=== PATIENT | male | born 1975 | race American Indian/Alaskan Native ===

== ENCOUNTER 2017-08-06 02:47 | Inpatient (IN) | payer MEDICARE, OTHER ==
[2017-08-06] MEDS ORDERED: NACL 0.9% 1000 ML 1,000 ML IV ONE ×2 (03:20→04:10)
[2017-08-06] MEDS ORDERED: ZOFRAN IV ONE (03:57)
[2017-08-06] MEDS ORDERED: PROTONIX IV ONE (03:59)
[2017-08-06] MEDS ORDERED: ZOFRAN ONE ×2 (03:59→15:02)
[2017-08-06] MEDS ORDERED: PROTONIX 80 MG in NACL 0.9% 100 ML IV SCH (04:00)
--- NOTE | 2017-08-06 04:07 | Emergency Department Report ---
ED GI Bleed HPI - General Chief complaint: GI Bleed Stated complaint: VOMITING BLOOD Time Seen by Provider: 08/06/17 03:31 Source: patient, EMS Mode of arrival: Stretcher Limitations: No Limitations - History of Present Illness Initial comments: History of ulcerative colitis. Has seen a GI doctor, dr weiss at [facility], but lost to follow-up, his friends state he does drink and smoke, he' s been having brb and clots per upper gi and nl stool per pt, he is vomiting blood times one day MD complaint: blood streaked emesis, gross hematemesis -: This evening Radiation: none - Related Data Allergies Allergy/AdvReac Type Severity Reaction Status Date / Time Penicillins Allergy Unknown Verified 08/06/17 03:20 ED Review of Systems ROS: Stated complaint: VOMITING BLOOD Other details as noted in HPI Comment: All other systems reviewed and negative Constitutional: diaphoresis, malaise. denies: fever, weakness ENT: denies: ear pain, throat pain Respiratory: denies: see HPI, cough, orthopnea, shortness of breath, SOB with exertion, SOB at rest, stridor, wheezing Cardiovascular: denies: chest pain, palpitations, dyspnea on exertion, orthopnea , edema, syncope, paroxysmal nocturnal dyspnea Gastrointestinal: nausea, vomiting, hematemesis. denies: abdominal pain Skin: rash, lesions Neurological: denies: headache, weakness, numbness, paresthesias, confusion, abnormal gait, vertigo ED Past Medical Hx - Past Medical History Additional medical history: A fib. ulcerative colitis - Surgical History Additional Surgical History: esophagus - Social History Smoking Status: Current Some Day Smoker ED Physical Exam - General Limitations: No Limitations General appearance: alert, anxious - Head Head exam: Present: atraumatic, normocephalic - Eye Eye exam: Present: other (pale conjunctiva) - ENT ENT exam: Present: normal exam, normal orophraynx, mucous membranes moist - Neck Neck exam: Present: normal inspection. Absent: tenderness, meningismus - Respiratory Respiratory exam: Present: normal lung sounds bilaterally. Absent: respiratory distress, wheezes, rales, rhonchi, stridor, chest wall tenderness, accessory muscle use, decreased breath sounds, prolonged expiratory - Cardiovascular Cardiovascular Exam: Present: tachycardia, normal heart sounds. Absent: rubs, gallop - GI/Abdominal GI/Abdominal exam: Present: soft. Absent: guarding, rebound, rigid, mass, bruit , pulsatile mass - Rectal Rectal exam: Present: normal inspection, heme (+) stool, other (Brown stool) - Extremities Exam Extremities exam: Present: normal inspection, normal capillary refill. Absent: pedal edema, joint swelling, calf tenderness - Back Exam Back exam: Present: normal inspection. Absent: CVA tenderness (L), muscle spasm , paraspinal tenderness, vertebral tenderness - Neurological Exam Neurological exam: Present: alert, oriented X3, CN II-XII intact. Absent: motor sensory deficit - Psychiatric Psychiatric exam: Present: anxious. Absent: agitated, homicidal ideation, suicidal ideation - Skin Skin exam: Present: diaphoretic, pallor ED Course Vital Signs 08/06/17 08/06/17 08/06/17 03:10 03:25 03:32 Temperature 98.3 F Pulse Rate 110 H 112 H Respiratory 16 19 Rate Blood Pressure 114/60 O2 Sat by Pulse 99 100 Oximetry 08/06/17 08/06/17 04:01 04:25 Temperature Pulse Rate 106 H Respiratory 16 Rate Blood Pressure 109/62 O2 Sat by Pulse 100 Oximetry - Reevaluation(s) Reevaluation #1: 08/06/17 05:08 2 IV lines were started and patient was bolused with fluid initial heart rate was 112 patient was somewhat diaphoretic after vomiting he did have emesis basin at the bedside with blood clots and bright red blood that he had thrown up. Stool was heme positive brown stool, type and cross was sent patient was placed on a PPI drip ED Medical Decision Making - Lab Data Result diagrams: 08/06/17 04:01 08/06/17 04:01 - EKG Data -: EKG Interpreted by Me EKG shows normal: sinus rhythm - EKG Data When compared to previous EKG there are: other (no acute ischemic change) Interpretation: no acute changes - Radiology Data Radiology results: pending - Medical Decision Making Hemoglobin came back at 10.1, case was discussed with Dr. Martinez who is on-call for hospitalist who will admit patient for further evaluation of GI bleed. vital signs are stable at this time no further emesis noted in the ED after Zofran. He was started on Protonix drip ;I also did notify [facility] is aware of patient and will see pt, repeat vitals stable Critical Care Time: Yes Critical care time in (mins) excluding proc time.: 35 Critical care attestation.: If time is entered above; I have spent that time in minutes in the direct care of this critically ill patient, excluding procedure time. ED Disposition Clinical Impression: Hematemesis, GIB (gastrointestinal bleeding) Disposition: OP ADMIT IP TO THIS HOSP Is pt being admited?: Yes Condition: Stable Referrals: IGLESIA SALEEM MD [Primary Care Provider] - 3-5 Days Forms: Accompanied Note Time of Disposition: 05:16
[2017-08-06 04:40] LABS: Basophils % (Auto) 0.2 % (0.0-1.8); Eosinophils % (Auto) 0.2 % (0.0-4.3); Hematocrit 30.9 % (35.5-45.6); Hemoglobin 10.1 gm/dl (11.8-15.2); Lymphocytes # (Auto) 1.1 K/mm3 (1.2-5.4); Lymphocytes % (Auto) 9.8 % (13.4-35.0); Mean Corpuscular HGB Conc 33 % (32-34); Mean Corpuscular Hemoglobin 28 pg (28-32); Mean Corpuscular Volume 87 fl (84-94); Monocytes # (Auto) 1.1 K/mm3 (0.0-0.8); Monocytes % (Auto) 10.2 % (0.0-7.3); Platelet Count 273 K/mm3 (140-440); Red Blood Count 3.57 M/mm3 (3.65-5.03); Red Cell Distribution Width 13.9 % (13.2-15.2)
[2017-08-06 04:50] LABS: INR 1.09 (0.87-1.13)
[2017-08-06 04:51] LABS: Partial Thromboplastin Time 26.4 Sec. (24.2-36.6)
[2017-08-06 04:58] LABS: Alanine Aminotransferase 10 units/L (7-56); Albumin 3.6 g/dL (3.9-5); BUN/Creatinine Ratio 29; Blood Urea Nitrogen 26 mg/dL (9-20); Calcium 7.9 mg/dL (8.4-10.2); Hemolysis Index 2; Lipase 19 units/L (13-60)
[2017-08-06] MEDS: PROTONIX 80 MG in NACL 0.9% 100 ML IV SCH (05:06)
--- NOTE | 2017-08-06 05:22 | XRay Report ---
FINAL REPORT EXAM: XR CHEST 1V AP HISTORY: hematemesis TECHNIQUE: AP portable view(s) of the chest obtained. PRIORS: None. FINDINGS: No mediastinal shift. Cardiac silhouette is not enlarged. No pneumothorax, effusion, or focal pulmonary opacity identified. No evident pneumoperitoneum. No acute skeletal findings. IMPRESSION: No acute pulmonary finding or evident pneumoperitoneum.
[2017-08-06] MEDS ORDERED: TYLENOL PO PRN (05:36)
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
[2017-08-06] MEDS ORDERED: ATIVAN IV PRN ×2 (05:46)
[2017-08-06 06:02] LABS: Hematocrit 25.6 % (35.5-45.6); Hemoglobin 8.5 gm/dl (11.8-15.2)
[2017-08-06] MEDS: NACL 0.9% 1000 ML 1,000 ML IV SCH ×2 (06:46→11:08)
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
[2017-08-06] MEDS: ZOFRAN IV PRN (09:46)
[2017-08-06 10:40] LABS: Hematocrit 22.6 % (35.5-45.6); Hemoglobin 7.6 gm/dl (11.8-15.2)
[2017-08-06] MEDS ORDERED: WATER FOR IRRIG STERILE IR ONE ×2 (11:06→12:26)
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
[2017-08-06] MEDS ORDERED: DIPRIVAN 10 MG/ML IV ONE ×2 (11:39→12:06)
[2017-08-06] MEDS ORDERED: XYLOCAINE MPF 2% ONE (11:39)
[2017-08-06] MEDS ORDERED: QUELICIN ONE (11:39)
--- NOTE | 2017-08-06 11:51 | Anesthesia Day of Surgery ---
Anesthesia Day of Surgery - Day of Surgery Patient Examined: Yes Patient H&P Reviewed: Yes Patient is NPO: Yes (actively vomiting)
[2017-08-06] MEDS ORDERED: NACL 0.9% 500 ML 500 ML IV ONE (11:52)
--- NOTE | 2017-08-06 11:55 | Anesthesia Day of Surgery ---
Anesthesia Day of Surgery - Day of Surgery Patient Examined: Yes Patient H&P Reviewed: Yes Patient is NPO: Yes (actively vomiting)
[2017-08-06] MEDS ORDERED: ADRENALIN IV ONE (12:15)
[2017-08-06] MEDS ORDERED: INFANTS' GAS RELIEF PO ONE (12:26)
--- NOTE | 2017-08-06 12:54 | Post Operative Note ---
Pre-op diagnosis: GI Bleed Post-op diagnosis: other (Active bleeding from GE jxn, normal stomach (full of blood)) Findings: 1. Circular rim of inflammatory/eroded tissue at the GE junction, possibly surgical site from 2004 (Hx of esoph rupture) - Active bleeding from a tear (likely ezra lucero) at the GE junction - Treated with 2ml epinephrine - Treated with gold probe cautery with resolution of bleeding - No obvious varices but anatomy was distorted 2. Large amount of blood in the fundus but no other lesions seen in the stomach or duodenum Procedure: EGD with epinephrine injection and gold probe cautery to control bleeding Anesthesia: JOHANNEA Surgeon: NICOL ALMONTE Estimated blood loss: minimal Pathology: none Specimen disposition: other (N/A) Condition: critical Disposition: ICU (Recs: 1. Given the depth of the tear at a (probable) area of prior surgery, and the patient's continue retching overnight, he would be best served by remaining on the vent with deep sedation for the first 24 hours. 2. Will need protonix gtt, and octreotide (for 24 hours) may help as well. 3. Avoid NG tube given severe inflammation and cautery at the GE junction. 4. Avoid all NSDAIDs. 5. Continue CIWA protocol to avoid withdrawal symptoms. 6. If hct stable tomorrow, OK to extubate if VSS. 7. Patient noted to have some blood at the cords and mucus on suction of ET tube; if has fever or elevated WBC , would treat as an aspiration pneumonia.)
[2017-08-06] MEDS ORDERED: VERSED ONE (13:01)
[2017-08-06] MEDS ORDERED: VASELINE LIP THERAPY TP PRN ×3 (13:15→14:48)
[2017-08-06] MEDS ORDERED: ARTIFICIAL TEARS OPHTH OINT OU PRN ×3 (13:15→14:48)
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
[2017-08-06] MEDS ORDERED: DIPRIVAN 10 MG/ML 1,000 MG/100 ML BOTTLE IV ONE ×2 (13:31→15:39)
[2017-08-06] MEDS: DIPRIVAN 10 MG/ML 1,000 MG/100 ML BOTTLE IV SCH (13:40)
[2017-08-06] MEDS ORDERED: ZEMURON IV ONE ×4 (13:49→15:02)
[2017-08-06] MEDS ORDERED: NACL 0.9% 500 ML IV SCH ×2 (14:00→15:00)
--- NOTE | 2017-08-06 14:00 | XRay Report ---
Single view chest: Compared to 08/06/17. History: ET tube placement. Findings: Borderline cardiomegaly. Trachea is midline. Tip of an endotracheal tube in normal position. Left CP angle obscured by heart. No consolidation, pneumothorax or definite pleural effusion. Impression: Tip of endotracheal in normal position. No definite acute lung changes . Left lower lobe is obscured by left ventricle and cannot be optimally evaluated.
[2017-08-06] MEDS ORDERED: SUBLIMAZE ONE (14:02)
[2017-08-06] MEDS ORDERED: ATIVAN ONE (14:27)
[2017-08-06] MEDS ORDERED: ATIVAN IV ONE (14:27)
[2017-08-06] MEDS ORDERED: NACL 0.9% 1000 ML 1,000 ML ONE (14:45)
[2017-08-06] MEDS: MIDAZOLAM 100 MG in NACL 0.9% 80 ML IV SCH ×2 (15:00→18:45)
[2017-08-06 15:30] LABS: Hematocrit 28.1 % (35.5-45.6); Hemoglobin 9.3 gm/dl (11.8-15.2)
[2017-08-06 16:58] LABS: Hematocrit 27.4 % (35.5-45.6)
[2017-08-06] MEDS ORDERED: CARAFATE PO SCH (18:00)
[2017-08-06] MEDS: SandoSTATIN 500 MCG in NACL 0.9% 100 ML IV SCH (18:52)
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
[2017-08-07] MEDS: SandoSTATIN 500 MCG in NACL 0.9% 100 ML IV SCH (03:08)
[2017-08-07] MEDS: PROTONIX 80 MG in NACL 0.9% 100 ML IV SCH ×3 (03:09→21:30)
[2017-08-07] MEDS: fentaNYL DRIP Premix 2,000 MCG/100 ML BAG IV SCH ×2 (03:10→17:28)
[2017-08-07] MEDS: NACL 0.9% 1000 ML 1,000 ML IV SCH ×4 (03:37→16:33)
[2017-08-07 05:41] LABS: Basophils # (Auto) 0.1 K/mm3 (0.0-0.1); Basophils % (Auto) 0.4 % (0.0-1.8); Eosinophils % (Auto) 0.1 % (0.0-4.3); Hemoglobin 8.6 gm/dl (11.8-15.2); Lymphocytes # (Auto) 2.8 K/mm3 (1.2-5.4); Lymphocytes % (Auto) 16.6 % (13.4-35.0); Mean Corpuscular HGB Conc 33 % (32-34); Mean Corpuscular Hemoglobin 28 pg (28-32); Mean Corpuscular Volume 85 fl (84-94); Monocytes # (Auto) 1.8 K/mm3 (0.0-0.8); Monocytes % (Auto) 10.8 % (0.0-7.3); Platelet Count 189 K/mm3 (140-440); Red Blood Count 3.06 M/mm3 (3.65-5.03); Red Cell Distribution Width 14.1 % (13.2-15.2)
[2017-08-07 05:59] LABS: BUN/Creatinine Ratio 15; Blood Urea Nitrogen 15 mg/dL (9-20); Calcium 7.6 mg/dL (8.4-10.2); Hemolysis Index 336
[2017-08-07] MEDS: DIPRIVAN 10 MG/ML 1,000 MG/100 ML BOTTLE IV SCH ×3 (08:45→16:44)
--- NOTE | 2017-08-07 09:01 | XRay Report ---
AP CHEST: HISTORY: Endotracheal tube placement The endotracheal tube is in good position terminating 4.7 cm superior to the juanjo. Left lower lobe opacity has nearly resolved since yesterday's exam and probably represented left lower lobe atelectasis. Partial left lower lobe atelectasis remains. The left upper lobe and right lung are clear. Normal heart and mediastinal structures. IMPRESSION: Adequate position of the endotracheal tube. Decreased left lower lobe opacity which probably represented atelectasis on yesterday's exam.
[2017-08-07] MEDS ORDERED: PREVNAR 13 IM ONE (09:14)
--- NOTE | 2017-08-07 11:29 | Progress Note ---
Assessment and Plan Assessment and plan: --Severe upper GI bleeding; status post EGD Continue Protonix, IV fluids and supportive care, GI following --Acute blood loss anemia; received 2 units of blood transfusion Slight drop in H&H, transfuse additional 2 units of PRBC as needed --History of ulcerative colitis; no symptoms, GI following --History of A. fib rate controlled. Not on anticoagulants, not a candidate at this point in view of severe GI bleeding --Acute respiratory failure/altered level of consciousness; prophylactic intubation, continue ventilatory support, pulmonary following --History of alcohol abuse; thiamine and folic acid IV fluid, --Closely monitor alcohol withdrawal symptoms; continue CIWA protocol Patient may need alcohol rehabilitation once medically stable --DVT prophylaxis; SCDs, Closely monitor the patient and adjust the management as needed I discussed in detail patient's condition treatment plan different test reports with the patient's mother and father at the bedside, answered all their questions Consults and recommendations noted and appreciated Critical care time 40 minutes History Interval history: Patient seen and evaluated medical records reviewed Patient is orally intubated on ventilatory support, sedated Mother and father at the bedside Mild drop in H&H No new events reported by the nursing staff Vital signs reviewed Hospitalist Physical - Constitutional Vitals: Temp Pulse Resp BP Pulse Ox 97.9 F 102 H 16 90/49 99 08/07/17 08:00 08/07/17 08:50 08/07/17 08:50 08/07/17 08:50 08/07/17 08:50 General appearance: Present: no acute distress, other (intubated and sedated on vent) - EENT Eyes: Present: PERRL, EOM intact - Neck Neck: Present: supple - Respiratory Respiratory effort: normal Respiratory: bilateral: diminished, rhonchi, negative: rales, wheezing - Cardiovascular Rhythm: regular Heart Sounds: Present: S1 & S2 - Extremities Extremities: no ischemia, No edema - Abdominal General gastrointestinal: soft, non-tender, non-distended, normal bowel sounds - Integumentary Integumentary: Present: clear, warm - Psychiatric Psychiatric: other (noncommunicative intubated and sedated) - Neurologic Neurologic: other (noncommunicative intubated and sedated) Results - Labs CBC & Chem 7: 08/07/17 18:04 08/07/17 05:26 Labs: Laboratory Last Values WBC 16.7 K/mm3 (4.5-11.0) H 08/07/17 05:26 RBC 3.06 M/mm3 (3.65-5.03) L 08/07/17 05:26 Hgb 8.6 gm/dl (11.8-15.2) L 08/07/17 05:26 Hct 26.0 % (35.5-45.6) L 08/07/17 05:26 MCV 85 fl (84-94) 08/07/17 05:26 MCH 28 pg (28-32) 08/07/17 05:26 MCHC 33 % (32-34) 08/07/17 05:26 RDW 14.1 % (13.2-15.2) 08/07/17 05:26 Plt Count 189 K/mm3 (140-440) 08/07/17 05:26 Lymph % (Auto) 16.6 % (13.4-35.0) 08/07/17 05:26 [place] % (Auto) 10.8 % (0.0-7.3) H 08/07/17 05:26 Eos % (Auto) 0.1 % (0.0-4.3) 08/07/17 05:26 Baso % (Auto) 0.4 % (0.0-1.8) 08/07/17 05:26 Lymph # 2.8 K/mm3 (1.2-5.4) 08/07/17 05:26 [place] # 1.8 K/mm3 (0.0-0.8) H 08/07/17 05:26 Eos # 0.0 K/mm3 (0.0-0.4) 08/07/17 05:26 Baso # 0.1 K/mm3 (0.0-0.1) 08/07/17 05:26 Seg Neutrophils % 72.1 % (40.0-70.0) H 08/07/17 05:26 Seg Neutrophils # 12.0 K/mm3 (1.8-7.7) H 08/07/17 05:26 PT 14.7 Sec. (12.2-14.9) 08/06/17 04:01 INR 1.09 (0.87-1.13) 08/06/17 04:01 APTT 26.4 Sec. (24.2-36.6) 08/06/17 04:01 POC ABG pH 7.409 (7.35-7.45) 08/07/17 05:36 POC ABG pCO2 41.3 (35-45) 08/07/17 05:36 POC ABG pO2 138 (80-105) H 08/07/17 05:36 POC ABG HCO3 26.1 08/07/17 05:36 POC ABG Total CO2 27 08/07/17 05:36 POC ABG O2 Sat 99 08/07/17 05:36 POC ABG Base Excess 1 08/07/17 05:36 FiO2 40 % 08/07/17 05:36 Sodium 144 mmol/L (137-145) D 08/07/17 05:26 Potassium 5.0 mmol/L (3.6-5.0) 08/07/17 05:26 Chloride 114.4 mmol/L (98-107) H 08/07/17 05:26 Carbon Dioxide 20 mmol/L (22-30) L 08/07/17 05:26 Anion Gap 15 mmol/L 08/07/17 05:26 BUN 15 mg/dL (9-20) 08/07/17 05:26 Creatinine 1.0 mg/dL (0.8-1.5) 08/07/17 05:26 Estimated GFR > 60 ml/min 08/07/17 05:26 BUN/Creatinine Ratio 15 % 08/07/17 05:26 Glucose 115 mg/dL (75-100) H 08/07/17 05:26 Calcium 7.6 mg/dL (8.4-10.2) L 08/07/17 05:26 Total Bilirubin 0.70 mg/dL (0.1-1.2) 08/06/17 04:01 AST 16 units/L (5-40) 08/06/17 04:01 ALT 10 units/L (7-56) 08/06/17 04:01 Alkaline Phosphatase 55 units/L (35-129) 08/06/17 04:01 Total Protein 5.8 g/dL (6.3-8.2) L 08/06/17 04:01 Albumin 3.6 g/dL (3.9-5) L 08/06/17 04:01 Albumin/Globulin Ratio 1.6 % 08/06/17 04:01 Lipase 19 units/L (13-60) 08/06/17 04:01 Plasma/Serum Alcohol < 0.01 % (0-0.07) 08/06/17 04:21 Blood Type O POSITIVE 08/06/17 04:01 Antibody Screen Negative 08/06/17 04:01 Crossmatch See Detail 08/06/17 04:01
[2017-08-07] MEDS ORDERED: SUBLIMAZE IV PRN (11:33)
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
[2017-08-07 14:36] LABS: Hematocrit 22.1 % (35.5-45.6); Hemoglobin 7.1 gm/dl (11.8-15.2)
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
[2017-08-07] MEDS ORDERED: VITAMIN B-1 100 MG, FOLVITE 1 MG, INFUVITE 10 ML in NACL 0.9% 1000 ML 1,000 ML IV ONE (15:48)
[2017-08-07] MEDS ORDERED: NACL 0.9% 500 ML 500 ML IV NR (16:00)
[2017-08-07] MEDS: MIDAZOLAM 100 MG in NACL 0.9% 80 ML IV SCH (17:28)
[2017-08-07 18:31] LABS: Hematocrit 23.7 % (35.5-45.6); Hemoglobin 7.5 gm/dl (11.8-15.2)
[2017-08-07] MEDS ORDERED: BENADRYL IV ONE (20:34)
[2017-08-07] MEDS: TYLENOL PR PRN (21:25)
[2017-08-08 02:11] LABS: Hematocrit 24.6 % (35.5-45.6); Hemoglobin 8.1 gm/dl (11.8-15.2)
[2017-08-08 04:50] LABS: Hematocrit 23.5 % (35.5-45.6); Hemoglobin 7.6 gm/dl (11.8-15.2)
[2017-08-08 05:50] LABS: BUN/Creatinine Ratio TNR; Blood Urea Nitrogen TNR mg/dL (9-20); Calcium TNR mg/dL (8.4-10.2); Hemolysis Index TNR; Magnesium TNR mg/dL (1.7-2.3)
--- NOTE | 2017-08-08 05:50 | XRay Report ---
FINAL REPORT EXAM: XR CHEST 1V AP HISTORY: follow up respiratory failure TECHNIQUE: A portable upright view of the chest was obtained. Comparison is made the study of 08/06/2017. FINDINGS: Since the previous study the patient is now intubated. The tip of the ET tube is 4.7 cm above the juanjo. There is now diffuse airspace disease in the lower 2/3 of the left lung secondary to atelectatic changes left lower lobe. Left-sided effusion cannot be excluded. The lungs are not congested. The heart size is normal. The bones and soft tissues otherwise are unchanged IMPRESSION: Satisfactory intubation. Diffuse airspace disease in the lower 2/3 of left lung. Whether this is related to atelectasis related to mucous plugging versus pneumonia is uncertain. Possible small left-sided effusion also.
[2017-08-08] MEDS: fentaNYL DRIP Premix 2,000 MCG/100 ML BAG IV SCH ×2 (07:20→18:33)
[2017-08-08 07:23] LABS: BUN/Creatinine Ratio 7; Blood Urea Nitrogen 6 mg/dL (9-20); Hemolysis Index 17
[2017-08-08] MEDS ORDERED: INFUVITE IV SCH ×2 (10:00)
[2017-08-08] MEDS ORDERED: MAGNESIUM SULFATE 2GM/50ML 2 GM/50 ML BAG IV ONE (10:00)
[2017-08-08] MEDS ORDERED: VITAMIN B1 IV SCH (10:00)
[2017-08-08] MEDS ORDERED: D5NS IV SCH ×2 (10:00)
[2017-08-08] MEDS ORDERED: FOLVITE IV SCH (10:00)
[2017-08-08] MEDS ORDERED: NACL 0.9% 500 ML 500 ML IV ONE (10:15)
[2017-08-08] MEDS: PROTONIX 80 MG in NACL 0.9% 100 ML IV SCH (10:43)
[2017-08-08] MEDS: NACL 0.9% 1000 ML 1,000 ML IV SCH (10:44)
--- NOTE | 2017-08-08 11:01 | Progress Note ---
Assessment and Plan 42 y/o male with esophageal rupture, status post repair, EGD now intubated for airway protection and esophageal rest, now with fever 1. Continue sedation at current levels 2. Continue PRN sedation with benzo's and narcs for pain 3. Will likely not extubate today, given risk for DT's and repeat scope at some point. 4. Follow up any new GI recs 5. No family at bedside this am 6. Fever: hold on abx therapy still for right now as clinically nothing has changed. Will tony-culture if patient spikes during day time. CXR reviewed from this am and it is stable, unchanged. CCT 31 minutes. Subjective Date of service: 08/08/17 Principal diagnosis: GI Bleed Interval history: No acute events. Had dark BM this am. was transfused one unit of blood yesterday. Febrile as well the last several checks. Pulm status unchanged and patient was not cultured on any of these readings. Objective Vital Signs - 12hr 08/07/17 08/07/17 08/07/17 23:00 23:03 23:10 Temperature 102.7 F H Pulse Rate 116 H 111 H 113 H Pulse Rate [ From Monitor] Respiratory 16 16 16 Rate Blood Pressure 102/50 103/54 103/54 O2 Sat by Pulse 100 100 100 Oximetry 08/07/17 08/07/17 08/07/17 23:20 23:30 23:33 Temperature 102.3 F H Pulse Rate 112 H 111 H 111 H Pulse Rate [ From Monitor] Respiratory 16 16 16 Rate Blood Pressure 102/50 101/46 101/46 O2 Sat by Pulse 100 99 100 Oximetry 08/07/17 08/07/17 08/07/17 23:40 23:44 23:50 Temperature Pulse Rate 112 H 111 H 111 H Pulse Rate [ From Monitor] Respiratory 16 16 Rate Blood Pressure 101/46 101/46 101/46 O2 Sat by Pulse 100 99 99 Oximetry 08/08/17 08/08/17 08/08/17 00:00 00:03 00:10 Temperature 102.8 F H Pulse Rate 111 H 110 H 110 H Pulse Rate [ 111 H From Monitor] Respiratory 16 16 16 Rate Blood Pressure 101/51 101/51 101/51 O2 Sat by Pulse 100 100 100 Oximetry 08/08/17 08/08/17 08/08/17 00:20 00:30 00:40 Temperature Pulse Rate 113 H 109 H 106 H Pulse Rate [ From Monitor] Respiratory 15 16 16 Rate Blood Pressure 101/51 111/56 111/56 O2 Sat by Pulse 99 100 100 Oximetry 08/08/17 08/08/17 08/08/17 00:50 01:00 01:10 Temperature Pulse Rate 105 H 107 H 106 H Pulse Rate [ From Monitor] Respiratory 16 16 16 Rate Blood Pressure 111/56 111/56 95/46 O2 Sat by Pulse 100 100 100 Oximetry 08/08/17 08/08/17 08/08/17 01:20 01:30 01:40 Temperature Pulse Rate 103 H 102 H 101 H Pulse Rate [ From Monitor] Respiratory 16 16 16 Rate Blood Pressure 95/46 103/52 103/52 O2 Sat by Pulse 100 100 100 Oximetry 08/08/17 08/08/17 08/08/17 01:50 02:00 02:10 Temperature Pulse Rate 100 H 98 H 97 H Pulse Rate [ From Monitor] Respiratory 16 16 16 Rate Blood Pressure 103/52 95/46 92/44 O2 Sat by Pulse 100 100 100 Oximetry 08/08/17 08/08/17 08/08/17 02:20 02:30 02:40 Temperature Pulse Rate 96 H 96 H 100 H Pulse Rate [ From Monitor] Respiratory 16 16 16 Rate Blood Pressure 92/44 92/44 97/46 O2 Sat by Pulse 100 100 100 Oximetry 08/08/17 08/08/17 08/08/17 02:50 03:00 03:10 Temperature Pulse Rate 96 H 98 H 97 H Pulse Rate [ From Monitor] Respiratory 16 16 16 Rate Blood Pressure 97/46 97/46 98/46 O2 Sat by Pulse 100 100 100 Oximetry 08/08/17 08/08/17 08/08/17 03:20 03:30 03:40 Temperature Pulse Rate 95 H 94 H 93 H Pulse Rate [ From Monitor] Respiratory 16 16 16 Rate Blood Pressure 98/46 98/46 96/39 O2 Sat by Pulse 100 100 100 Oximetry 08/08/17 08/08/17 08/08/17 03:50 04:00 04:10 Temperature Pulse Rate 92 H 93 H 91 H Pulse Rate [ 98 H From Monitor] Respiratory 16 16 16 Rate Blood Pressure 96/39 96/39 94/47 O2 Sat by Pulse 100 100 Oximetry 08/08/17 08/08/17 08/08/17 04:20 04:30 04:40 Temperature Pulse Rate 96 H 95 H 94 H Pulse Rate [ From Monitor] Respiratory 16 16 17 Rate Blood Pressure 94/47 101/55 101/55 O2 Sat by Pulse 100 Oximetry 08/08/17 08/08/17 08/08/17 04:50 05:00 05:10 Temperature Pulse Rate 97 H 93 H 92 H Pulse Rate [ From Monitor] Respiratory 18 16 16 Rate Blood Pressure 101/55 101/55 97/49 O2 Sat by Pulse 99 99 100 Oximetry 08/08/17 08/08/17 08/08/17 05:20 05:30 05:40 Temperature Pulse Rate 91 H 95 H 95 H Pulse Rate [ From Monitor] Respiratory 16 16 16 Rate Blood Pressure 97/49 93/43 93/43 O2 Sat by Pulse 100 100 100 Oximetry 08/08/17 08/08/17 08/08/17 05:50 06:00 06:10 Temperature Pulse Rate 92 H 89 88 Pulse Rate [ From Monitor] Respiratory 16 16 16 Rate Blood Pressure 93/43 95/44 95/44 O2 Sat by Pulse 100 100 100 Oximetry 08/08/17 08/08/17 08/08/17 06:20 06:30 06:40 Temperature Pulse Rate 87 86 87 Pulse Rate [ From Monitor] Respiratory 16 16 16 Rate Blood Pressure 95/44 90/43 90/43 O2 Sat by Pulse 100 100 100 Oximetry 08/08/17 08/08/17 08/08/17 06:50 07:00 07:10 Temperature Pulse Rate 85 86 87 Pulse Rate [ From Monitor] Respiratory 16 16 16 Rate Blood Pressure 90/43 88/39 90/43 O2 Sat by Pulse 100 100 100 Oximetry 08/08/17 08:00 Temperature Pulse Rate 100 H Pulse Rate [ From Monitor] Respiratory Rate Blood Pressure 90/30 O2 Sat by Pulse 100 Oximetry Constitutional: comatose (secondary to meds) Eyes: non-icteric ENT: other (orally intubated and sedated) Effort: normal Ascultation: Bilateral: clear Percussion: Bilateral: not dull Cardiovascular: regular rate and rhythm Gastrointestinal: soft Extremities: no cyanosis, no edema, other (multiple tatts) Neurologic: unable to assess CBC and BMP: 08/08/17 Unknown 08/08/17 06:53 ABG, PT/INR, D-dimer: ABG POC ABG pH 7.357 (7.35-7.45) 08/08/17 04:35 POC ABG pCO2 45.7 (35-45) H 08/08/17 04:35 POC ABG pO2 95 (80-105) 08/08/17 04:35 POC ABG HCO3 25.7 08/08/17 04:35 POC ABG Total CO2 27 08/08/17 04:35 POC ABG O2 Sat 97 08/08/17 04:35 PT/INR, D-dimer PT 14.7 Sec. (12.2-14.9) 08/06/17 04:01 INR 1.09 (0.87-1.13) 08/06/17 04:01 Abnormal lab findings: Abnormal Labs 08/06/17 08/06/17 08/06/17 04:01 04:01 04:01 WBC RBC 3.57 L Hgb 10.1 L Hct 30.9 L Lymph % (Auto) 9.8 L Davis % (Auto) 10.2 H Lymph # 1.1 L Davis # 1.1 H Seg Neutrophils % 79.6 H Seg Neutrophils # 8.6 H POC ABG pH POC ABG pCO2 POC ABG pO2 Sodium 135 L Potassium 5.6 H Chloride 97.1 L Carbon Dioxide BUN 26 H Glucose 122 H Calcium 7.9 L Total Protein 5.8 L Albumin 3.6 L Crossmatch See Detail 08/06/17 08/06/17 08/06/17 05:47 10:21 15:12 WBC RBC Hgb 8.5 L 7.6 L Hct 25.6 L 22.6 L Lymph % (Auto) Davis % (Auto) Lymph # Davis # Seg Neutrophils % Seg Neutrophils # POC ABG pH 7.272 L POC ABG pCO2 46.7 H POC ABG pO2 Sodium Potassium Chloride Carbon Dioxide BUN Glucose Calcium Total Protein Albumin Crossmatch 08/06/17 08/06/17 08/07/17 15:20 16:37 05:26 WBC 16.7 H RBC 3.06 L Hgb 9.3 L 9.0 L 8.6 L Hct 28.1 L 27.4 L 26.0 L Lymph % (Auto) Davis % (Auto) 10.8 H Lymph # Davis # 1.8 H Seg Neutrophils % 72.1 H Seg Neutrophils # 12.0 H POC ABG pH POC ABG pCO2 POC ABG pO2 Sodium Potassium Chloride Carbon Dioxide BUN Glucose Calcium Total Protein Albumin Crossmatch 08/07/17 08/07/17 08/07/17 05:26 05:36 13:28 WBC RBC Hgb 7.1 L Hct 22.1 L Lymph % (Auto) Davis % (Auto) Lymph # Davis # Seg Neutrophils % Seg Neutrophils # POC ABG pH POC ABG pCO2 POC ABG pO2 138 H Sodium Potassium Chloride 114.4 H Carbon Dioxide 20 L BUN Glucose 115 H Calcium 7.6 L Total Protein Albumin Crossmatch 08/07/17 08/08/17 08/08/17 18:04 04:16 04:35 WBC RBC Hgb 7.5 L 7.6 L Hct 23.7 L 23.5 L Lymph % (Auto) [place] % (Auto) Lymph # Davis # Seg Neutrophils % Seg Neutrophils # POC ABG pH POC ABG pCO2 45.7 H POC ABG pO2 Sodium Potassium Chloride Carbon Dioxide BUN Glucose Calcium Total Protein Albumin Crossmatch 08/08/17 08/08/17 06:53 Unknown WBC RBC Hgb 8.1 L Hct 24.6 L Lymph % (Auto) Davis % (Auto) Lymph # Davis # Seg Neutrophils % Seg Neutrophils # POC ABG pH POC ABG pCO2 POC ABG pO2 Sodium Potassium Chloride 108.7 H Carbon Dioxide BUN 6 L Glucose Calcium 7.0 L Total Protein Albumin Crossmatch
[2017-08-08] MEDS ORDERED: PREVNAR 13 IM ONE (12:00)
[2017-08-08] MEDS ORDERED: PNEUMOVAX 23 IM ONE (12:00)
[2017-08-08] MEDS: ATIVAN IV PRN (12:30)
[2017-08-08] MEDS ORDERED: DIPRIVAN 10 MG/ML IV ONE ×2 (13:03→13:10)
[2017-08-08] MEDS ORDERED: WATER FOR IRRIG STERILE IR ONE (13:04)
[2017-08-08] MEDS ORDERED: ZEMURON IV ONE ×2 (13:05→13:13)
[2017-08-08] MEDS ORDERED: QUELICIN ONE (13:13)
[2017-08-08] MEDS ORDERED: XYLOCAINE CARDIAC IV ONE (13:13)
--- NOTE | 2017-08-08 13:46 | Post Operative Note ---
Pre-op diagnosis: MWT Post-op diagnosis: same Findings: 1. No blood or mucosal lesions in the stomach or duodenum 2. Ulcerated area at the GE junction consistent with prior cautery 2 days ago; stable and no clots or visible vessel 3. No varices Procedure: EGD Anesthesia: MAC Surgeon: NICOL ALMONTE Estimated blood loss: none Pathology: none Specimen disposition: other (N/A) Condition: stable Disposition: ICU (Recs: 1. OK to extubate when pneumonia/DTs improved. 2. Continue protonix IV. 3. When extubated, needs strict control of N/V (with benzos if needed). 4. Clear liquid diet when extubated, but avoid NG/Dobhoff for now unless critical.)
[2017-08-08] MEDS: DIPRIVAN 10 MG/ML 1,000 MG/100 ML BOTTLE IV SCH ×2 (14:23→20:55)
[2017-08-08] MEDS: CLEOCIN 900 MG/50 mL 900 MG/50 ML BAG IV SCH ×2 (14:32→22:05)
--- NOTE | 2017-08-08 15:00 | Operative Report ---
PROCEDURE PERFORMED: Esophagogastroduodenoscopy. PREOPERATIVE DIAGNOSES: Second look endoscopy due to severe bleeding/history of Monica-Espinal tear. POSTOPERATIVE DIAGNOSES: Monica-Espinal tear, but improved appearance from 2 days previously and no evidence of active bleeding. ENDOSCOPIST: Aftab Fink MD INSTRUMENT: [employer] video endoscope. MEDICATIONS: The patient has been on a ventilator for delirium tremens as well as pneumonia for the last 48 hours; no supplemental medications were given during this procedure. COMPLICATIONS: No apparent complications. ESTIMATED BLOOD LOSS: Minimal. SPECIMENS: None. IMPLANTS: None. ASSISTANTS: None. CONDITION AT COMPLETION: Stable, but critical. TECHNIQUE: The patient's mother gave informed consent to proceed. Since the patient was on the ventilator after informed consent was obtained, the patient was placed in the left lateral decubitus position. The above sedative medications were given. His vital signs remained stable throughout the procedure. The instrument was advanced from the mouth to the second portion of the duodenum under direct visualization. At that point, the bowel was insufflated and the endoscope was slowly withdrawn. FINDINGS: 1. No blood or blood clots in the upper GI tract. 2. There were no mucosal lesions noted in the stomach or the duodenum and they were well visualized. 3. There was an ulcerated area, approximately 1 cm across, at the GE junction consistent with cautery of the patient's Monica-Espinal tear 2 days ago; it is stable and there was no evidence of clots or visible vessel. 4. No evidence of esophageal varices. 5. Overall improved appearance from 2 days ago. RECOMMENDATIONS: 1. Okay to extubate the patient when his pneumonia and delirium tremens are improved. 2. Continue Protonix IV. 3. When the patient is extubated, we need strict control of nausea and vomiting with benzodiazepines if needed. 4. Clear liquid diet when extubated, but avoid NG tube and Dobbhoff unless critically needed. JOB# [id number] JOSH/LEAH
[2017-08-08 18:29] LABS: Hemoglobin 7.9 gm/dl (11.8-15.2)
--- NOTE | 2017-08-08 18:36 | Progress Note ---
Assessment and Plan Assessment and plan: --Monica Katlyn tear; on initial EGD Repeat EGD no new findings Continue Protonix, ventilatory support and sedation --Severe upper GI bleeding; now resolved Continue Protonix, IV fluids and supportive care, GI following --Acute blood loss anemia; received 3 units of blood transfusion Hb 8.1, closely monitor transfuse additional PRBC as needed --History of ulcerative colitis; no symptoms, GI following --History of A. fib rate controlled. Not on anticoagulants, not a candidate at this point in view of severe GI bleeding --Acute respiratory failure/altered level of consciousness; prophylactic intubation, continue ventilatory support, Wean as tolerated and extubate --History of alcohol abuse; thiamine and folic acid IV fluid, --alcohol withdrawal symptoms; continue CIWA protocol Patient may need alcohol rehabilitation once medically stable --DVT prophylaxis; SCDs, Closely monitor the patient and adjust the management as needed plan of care reviewed with the mother and patient's nurse Answered all his questions Critical care time 32 minutes History Interval history: Patient seen and examined medical records reviewed Patient's mother is at the bedside Underwent repeat EGD, no active bleeding noted Patient remains intubated on ventilator support No new events reported by the nursing staff Vital signs reviewed Hospitalist Physical - Constitutional Vitals: Temp Pulse Resp BP Pulse Ox 102.8 F H 120 H 16 108/58 100 08/08/17 00:03 08/08/17 16:40 08/08/17 16:40 08/08/17 16:40 08/08/17 16:40 General appearance: Present: no acute distress, well-nourished, other ( intubated and sedated on vent) - EENT Eyes: Present: PERRL - Neck Neck: Present: supple - Respiratory Respiratory effort: normal Respiratory: bilateral: diminished, negative: rales, rhonchi, wheezing - Cardiovascular Rhythm: regular Heart Sounds: Present: S1 & S2 (tachycardia) - Extremities Extremities: no ischemia, No edema - Abdominal General gastrointestinal: soft, non-tender, non-distended, normal bowel sounds - Integumentary Integumentary: Present: clear, warm - Psychiatric Psychiatric: other (intubated and sedated) - Neurologic Neurologic: other (intubated and sedated) Results - Labs CBC & Chem 7: 08/08/17 Unknown 08/08/17 06:53 Labs: Laboratory Last Values WBC 16.7 K/mm3 (4.5-11.0) H 08/07/17 05:26 RBC 3.06 M/mm3 (3.65-5.03) L 08/07/17 05:26 Hgb 8.1 gm/dl (11.8-15.2) L 08/08/17 Unknown POC Hgb 7.5 (12-17) L 08/06/17 11:36 Hct 24.6 % (35.5-45.6) L 08/08/17 Unknown POC Hct 22 (38-51) L 08/06/17 11:36 MCV 85 fl (84-94) 08/07/17 05:26 MCH 28 pg (28-32) 08/07/17 05:26 MCHC 33 % (32-34) 08/07/17 05:26 RDW 14.1 % (13.2-15.2) 08/07/17 05:26 Plt Count 189 K/mm3 (140-440) 08/07/17 05:26 Lymph % (Auto) 16.6 % (13.4-35.0) 08/07/17 05:26 [place] % (Auto) 10.8 % (0.0-7.3) H 08/07/17 05:26 Eos % (Auto) 0.1 % (0.0-4.3) 08/07/17 05:26 Baso % (Auto) 0.4 % (0.0-1.8) 08/07/17 05:26 Lymph # 2.8 K/mm3 (1.2-5.4) 08/07/17 05:26 [place] # 1.8 K/mm3 (0.0-0.8) H 08/07/17 05:26 Eos # 0.0 K/mm3 (0.0-0.4) 08/07/17 05:26 Baso # 0.1 K/mm3 (0.0-0.1) 08/07/17 05:26 Seg Neutrophils % 72.1 % (40.0-70.0) H 08/07/17 05:26 Seg Neutrophils # 12.0 K/mm3 (1.8-7.7) H 08/07/17 05:26 PT 14.7 Sec. (12.2-14.9) 08/06/17 04:01 INR 1.09 (0.87-1.13) 08/06/17 04:01 APTT 26.4 Sec. (24.2-36.6) 08/06/17 04:01 POC ABG pH 7.357 (7.35-7.45) 08/08/17 04:35 POC ABG pCO2 45.7 (35-45) H 08/08/17 04:35 POC ABG pO2 95 (80-105) 08/08/17 04:35 POC ABG HCO3 25.7 08/08/17 04:35 POC ABG Total CO2 27 08/08/17 04:35 POC ABG O2 Sat 97 08/08/17 04:35 POC ABG Base Excess 0 08/08/17 04:35 POC Sodium 139 mmol/L (138-146) 08/06/17 11:36 POC Potassium 4.6 (3.5-4.9) 08/06/17 11:36 POC Chloride 103 (98-109) 08/06/17 11:36 FiO2 35 % 08/08/17 04:35 Sodium 142 mmol/L (137-145) 08/08/17 06:53 Potassium 3.7 mmol/L (3.6-5.0) D 08/08/17 06:53 Chloride 108.7 mmol/L (98-107) H 08/08/17 06:53 Carbon Dioxide 24 mmol/L (22-30) 08/08/17 06:53 Anion Gap 13 mmol/L 08/08/17 06:53 POC BUN 31 mg/dl (8-26) H 08/06/17 11:36 BUN 6 mg/dL (9-20) L 08/08/17 06:53 Creatinine 0.9 mg/dL (0.8-1.5) 08/08/17 06:53 Estimated GFR > 60 ml/min 08/08/17 06:53 BUN/Creatinine Ratio 7 % 08/08/17 06:53 Glucose 84 mg/dL (75-100) 08/08/17 06:53 POC Glucose 114 (70-105) H 08/06/17 11:36 Calcium 7.0 mg/dL (8.4-10.2) L 08/08/17 06:53 Magnesium 1.80 mg/dL (1.7-2.3) 08/08/17 06:53 Total Bilirubin 0.70 mg/dL (0.1-1.2) 08/06/17 04:01 AST 16 units/L (5-40) 08/06/17 04:01 ALT 10 units/L (7-56) 08/06/17 04:01 Alkaline Phosphatase 55 units/L (35-129) 08/06/17 04:01 Total Protein 5.8 g/dL (6.3-8.2) L 08/06/17 04:01 Albumin 3.6 g/dL (3.9-5) L 08/06/17 04:01 Albumin/Globulin Ratio 1.6 % 08/06/17 04:01 Lipase 19 units/L (13-60) 08/06/17 04:01 Plasma/Serum Alcohol < 0.01 % (0-0.07) 08/06/17 04:21 Blood Type O POSITIVE 08/06/17 04:01 Antibody Screen Negative 08/06/17 04:01 Crossmatch See Detail 08/06/17 04:01
[2017-08-08] MEDS: MIDAZOLAM 100 MG in NACL 0.9% 80 ML IV SCH (20:55)
[2017-08-08] MEDS: PROTONIX IV SCH (22:06)
[2017-08-09 00:45] LABS: Hematocrit 23.2 % (35.5-45.6); Hemoglobin 7.6 gm/dl (11.8-15.2)
--- NOTE | 2017-08-09 01:52 | XRay Report ---
FINAL REPORT EXAM: XR CHEST 1V AP HISTORY: follow up respiratory failure TECHNIQUE: A portable upright view the chest was obtained and compared to the study of 08/08/2017. FINDINGS: There is stable atelectatic changes/airspace disease in the left lower lobe. The lungs are not overtly congested. The right lung is clear. The heart size is normal. The tip of the ET tube is in good position above the juanjo. There EKG leads overlying the chest wall. The bones and soft tissues otherwise are unchanged IMPRESSION: Stable atelectatic changes/airspace disease in the left lower lobe.
[2017-08-09 03:30] LABS: Basophils % (Auto) 0.3 % (0.0-1.8); Eosinophils # (Auto) 0.1 K/mm3 (0.0-0.4); Eosinophils % (Auto) 0.7 % (0.0-4.3); Hematocrit 23.5 % (35.5-45.6); Hemoglobin 7.8 gm/dl (11.8-15.2); Lymphocytes # (Auto) 1.4 K/mm3 (1.2-5.4); Lymphocytes % (Auto) 13.2 % (13.4-35.0); Mean Corpuscular HGB Conc 33 % (32-34); Mean Corpuscular Hemoglobin 29 pg (28-32); Mean Corpuscular Volume 88 fl (84-94); Monocytes % (Auto) 9.6 % (0.0-7.3); Platelet Count 226 K/mm3 (140-440); Red Blood Count 2.67 M/mm3 (3.65-5.03); Red Cell Distribution Width 14.4 % (13.2-15.2)
[2017-08-09 03:51] LABS: Alanine Aminotransferase 11 units/L (7-56); Albumin 2.5 g/dL (3.9-5); BUN/Creatinine Ratio 5; Blood Urea Nitrogen 5 mg/dL (9-20); Calcium 7.2 mg/dL (8.4-10.2); Hemolysis Index 0
[2017-08-09] MEDS: CLEOCIN 900 MG/50 mL 900 MG/50 ML BAG IV SCH ×3 (05:48→21:29)
[2017-08-09] MEDS: fentaNYL DRIP Premix 2,000 MCG/100 ML BAG IV SCH (05:49)
[2017-08-09] MEDS: DIPRIVAN 10 MG/ML 1,000 MG/100 ML BOTTLE IV SCH (05:49)
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
[2017-08-09] MEDS ORDERED: XYLOCAINE 1% 20 mL ONE (10:40)
[2017-08-09] MEDS: PROTONIX IV SCH (10:47)
[2017-08-09] MEDS ORDERED: XYLOCAINE 1% 20 mL INFILTRATI NR (10:48)
--- NOTE | 2017-08-09 11:11 | Procedure Note ---
Date of procedure: 08/09/17 Pre-op diagnosis: Left Lower Lobe atelectasis with fever Post-op diagnosis: same Procedure: Flexible bronch via ET tube After obtaining informed consent, scoped passed through ET tube using lube and 1 % lido no epi. Bolus of Fent given prior to procedure. Kiera seen and normal. Airway inspection showed normal mucosa on left and right. No abnormalities in the airway. Some mucous seen in left lower lobe. Washed and removed. Remainder of airways clear. No debris or evidence of old blood in the airways. patient tolerated procedure well. Anesthesia: MAC Surgeon: GARCIA ZAMBRANO Estimated blood loss: none Pathology: none Specimen disposition: discarded Condition: critical Disposition: ICU
[2017-08-09] MEDS ORDERED: MAGNESIUM SULFATE 2GM/50ML 2 GM/50 ML BAG IV NR (12:00)
--- NOTE | 2017-08-09 13:43 | Progress Note ---
Assessment and Plan Assessment and plan: --It is post bronchoscopy, findings reviewed pulmonary following --Status post extubation, continue nasal cannula oxygen titrated to O2 sats more than 90%, Ventimask/BiPAP as needed --Monica Katlyn tear; on initial EGD Repeat EGD no new findings Continue Protonix, GI following --Severe upper GI bleeding; now resolved Continue Protonix, IV fluids and supportive care, GI following --Acute blood loss anemia; received 3 units of blood transfusion Hb 7.9, closely monitor transfuse additional PRBC as needed --History of ulcerative colitis; no symptoms, GI following --History of A. fib rate controlled. Not on anticoagulants, not a candidate at this point in view of severe GI bleeding --Acute respiratory failure/altered level of consciousness; prophylactic intubation, status post extubation --History of alcohol abuse; thiamine and folic acid IV fluid, --alcohol withdrawal symptoms; continue CIWA protocol Patient may need alcohol rehabilitation once medically stable --DVT prophylaxis; SCDs, Transfer the patient to medical floor after 2 hours if stable Plan of care reviewed with the family member at the bedside and the nurse Critical care time 35 minutes History Interval history: Patient seen and examined medical records reviewed Underwent bronchoscopy, and later patient was weaned and extubated Tolerating Ventimask/nasal cannula oxygen No new episodes of bleeding Patient is drowsy but easily awakens Vital signs reviewed Hospitalist Physical - Constitutional Vitals: Temp Pulse Resp BP Pulse Ox 99.0 F 92 H 16 95/42 100 08/09/17 07:48 08/09/17 07:53 08/09/17 06:00 08/09/17 07:53 08/09/17 12:11 General appearance: Present: mild distress, well-nourished, other (extubated) - EENT Eyes: Present: PERRL, EOM intact - Neck Neck: Present: supple, normal ROM - Respiratory Respiratory effort: normal Respiratory: bilateral: diminished, rhonchi, negative: rales, wheezing - Cardiovascular Rhythm: regular Heart Sounds: Present: S1 & S2 (tachycardia) - Extremities Extremities: no ischemia, No edema - Abdominal General gastrointestinal: soft, non-tender, non-distended, normal bowel sounds - Integumentary Integumentary: Present: clear, warm - Psychiatric Psychiatric: other (drowsy) - Neurologic Neurologic: moves all extremities Results - Labs CBC & Chem 7: 08/09/17 16:55 08/09/17 03:10 Labs: Laboratory Last Values WBC 10.6 K/mm3 (4.5-11.0) 08/09/17 03:10 RBC 2.67 M/mm3 (3.65-5.03) L 08/09/17 03:10 Hgb 7.8 gm/dl (11.8-15.2) L 08/09/17 03:10 POC Hgb 7.5 (12-17) L 08/06/17 11:36 Hct 23.5 % (35.5-45.6) L 08/09/17 03:10 POC Hct 22 (38-51) L 08/06/17 11:36 MCV 88 fl (84-94) 08/09/17 03:10 MCH 29 pg (28-32) 08/09/17 03:10 MCHC 33 % (32-34) 08/09/17 03:10 RDW 14.4 % (13.2-15.2) 08/09/17 03:10 Plt Count 226 K/mm3 (140-440) 08/09/17 03:10 Lymph % (Auto) 13.2 % (13.4-35.0) L 08/09/17 03:10 Morton % (Auto) 9.6 % (0.0-7.3) H 08/09/17 03:10 Eos % (Auto) 0.7 % (0.0-4.3) 08/09/17 03:10 Baso % (Auto) 0.3 % (0.0-1.8) 08/09/17 03:10 Lymph # 1.4 K/mm3 (1.2-5.4) 08/09/17 03:10 Morton # 1.0 K/mm3 (0.0-0.8) H 08/09/17 03:10 Eos # 0.1 K/mm3 (0.0-0.4) 08/09/17 03:10 Baso # 0.0 K/mm3 (0.0-0.1) 08/09/17 03:10 Seg Neutrophils % 76.2 % (40.0-70.0) H 08/09/17 03:10 Seg Neutrophils # 8.1 K/mm3 (1.8-7.7) H 08/09/17 03:10 PT 14.7 Sec. (12.2-14.9) 08/06/17 04:01 INR 1.09 (0.87-1.13) 08/06/17 04:01 APTT 26.4 Sec. (24.2-36.6) 08/06/17 04:01 POC ABG pH 7.357 (7.35-7.45) 08/08/17 04:35 POC ABG pCO2 45.7 (35-45) H 08/08/17 04:35 POC ABG pO2 95 (80-105) 08/08/17 04:35 POC ABG HCO3 25.7 08/08/17 04:35 POC ABG Total CO2 27 08/08/17 04:35 POC ABG O2 Sat 97 08/08/17 04:35 POC ABG Base Excess 0 08/08/17 04:35 POC Sodium 139 mmol/L (138-146) 08/06/17 11:36 POC Potassium 4.6 (3.5-4.9) 08/06/17 11:36 POC Chloride 103 (98-109) 08/06/17 11:36 FiO2 35 % 08/08/17 04:35 Sodium 140 mmol/L (137-145) 08/09/17 03:10 Potassium 3.6 mmol/L (3.6-5.0) 08/09/17 03:10 Chloride 102.6 mmol/L (98-107) 08/09/17 03:10 Carbon Dioxide 24 mmol/L (22-30) 08/09/17 03:10 Anion Gap 17 mmol/L 08/09/17 03:10 POC BUN 31 mg/dl (8-26) H 08/06/17 11:36 BUN 5 mg/dL (9-20) L 08/09/17 03:10 Creatinine 1.1 mg/dL (0.8-1.5) 08/09/17 03:10 Estimated GFR > 60 ml/min 08/09/17 03:10 BUN/Creatinine Ratio 5 % 08/09/17 03:10 Glucose 57 mg/dL (75-100) L 08/09/17 03:10 POC Glucose 114 (70-105) H 08/06/17 11:36 Calcium 7.2 mg/dL (8.4-10.2) L 08/09/17 03:10 Magnesium 1.60 mg/dL (1.7-2.3) L 08/09/17 03:10 Total Bilirubin 0.30 mg/dL (0.1-1.2) 08/09/17 03:10 AST 21 units/L (5-40) 08/09/17 03:10 ALT 11 units/L (7-56) 08/09/17 03:10 Alkaline Phosphatase 47 units/L (35-129) 08/09/17 03:10 Total Protein 4.3 g/dL (6.3-8.2) L D 08/09/17 03:10 Albumin 2.5 g/dL (3.9-5) L 08/09/17 03:10 Albumin/Globulin Ratio 1.4 % 08/09/17 03:10 Lipase 19 units/L (13-60) 08/06/17 04:01 Plasma/Serum Alcohol < 0.01 % (0-0.07) 08/06/17 04:21 Blood Type O POSITIVE 08/06/17 04:01 Antibody Screen Negative 08/06/17 04:01 Crossmatch See Detail 08/06/17 04:01
[2017-08-09] MEDS: ATIVAN IV PRN (14:25)
[2017-08-09] MEDS: TYLENOL PR PRN (14:29)
[2017-08-09 17:29] LABS: Hemoglobin 7.9 gm/dl (11.8-15.2)
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
[2017-08-09] MEDS: THERAGRAN-M Tab PO SCH (21:21)
[2017-08-09] MEDS: PROTONIX PO SCH (21:21)
[2017-08-10 01:40] LABS: Hematocrit 22.1 % (35.5-45.6); Hemoglobin 7.4 gm/dl (11.8-15.2)
[2017-08-10] MEDS: CLEOCIN 900 MG/50 mL 900 MG/50 ML BAG IV SCH ×2 (06:25→13:37)
[2017-08-10] MEDS: ZOFRAN IV PRN (08:17)
--- NOTE | 2017-08-10 08:26 | XRay Report ---
AP CHEST: HISTORY: Followup respiratory failure The left lower lobe air space opacity continues to decrease in size since 08/07/17 exam. Mild residual infiltrate remains in the left lower lobe. Trace left pleural effusion is now evident. The right lung is clear. Normal heart and mediastinal structures. IMPRESSION: Continued improvement in the left lower lobe infiltrate. Trace left pleural effusion is now evident.
[2017-08-10] MEDS ORDERED: FOLVITE PO SCH (10:00)
[2017-08-10] MEDS ORDERED: VITAMIN B-1 PO SCH (10:00)
--- NOTE | 2017-08-10 10:07 | Progress Note ---
Hospitalist Physical - Constitutional Vitals: Temp Pulse Resp BP Pulse Ox 99.7 F H 115 H 18 149/94 94 08/10/17 09:28 08/10/17 05:22 08/10/17 04:23 08/10/17 07:55 08/10/17 04:23 General appearance: Present: mild distress, well-nourished, other (extubated) Results - Labs CBC & Chem 7: 08/10/17 00:27 08/09/17 03:10 Labs: Laboratory Last Values WBC 10.6 K/mm3 (4.5-11.0) 08/09/17 03:10 RBC 2.67 M/mm3 (3.65-5.03) L 08/09/17 03:10 Hgb 7.4 gm/dl (11.8-15.2) L 08/10/17 00:27 POC Hgb 7.5 (12-17) L 08/06/17 11:36 Hct 22.1 % (35.5-45.6) L 08/10/17 00:27 POC Hct 22 (38-51) L 08/06/17 11:36 MCV 88 fl (84-94) 08/09/17 03:10 MCH 29 pg (28-32) 08/09/17 03:10 MCHC 33 % (32-34) 08/09/17 03:10 RDW 14.4 % (13.2-15.2) 08/09/17 03:10 Plt Count 226 K/mm3 (140-440) 08/09/17 03:10 Lymph % (Auto) 13.2 % (13.4-35.0) L 08/09/17 03:10 [place] % (Auto) 9.6 % (0.0-7.3) H 08/09/17 03:10 Eos % (Auto) 0.7 % (0.0-4.3) 08/09/17 03:10 Baso % (Auto) 0.3 % (0.0-1.8) 08/09/17 03:10 Lymph # 1.4 K/mm3 (1.2-5.4) 08/09/17 03:10 [place] # 1.0 K/mm3 (0.0-0.8) H 08/09/17 03:10 Eos # 0.1 K/mm3 (0.0-0.4) 08/09/17 03:10 Baso # 0.0 K/mm3 (0.0-0.1) 08/09/17 03:10 Seg Neutrophils % 76.2 % (40.0-70.0) H 08/09/17 03:10 Seg Neutrophils # 8.1 K/mm3 (1.8-7.7) H 08/09/17 03:10 PT 14.7 Sec. (12.2-14.9) 08/06/17 04:01 INR 1.09 (0.87-1.13) 08/06/17 04:01 APTT 26.4 Sec. (24.2-36.6) 08/06/17 04:01 POC ABG pH 7.357 (7.35-7.45) 08/08/17 04:35 POC ABG pCO2 45.7 (35-45) H 08/08/17 04:35 POC ABG pO2 95 (80-105) 08/08/17 04:35 POC ABG HCO3 25.7 08/08/17 04:35 POC ABG Total CO2 27 08/08/17 04:35 POC ABG O2 Sat 97 08/08/17 04:35 POC ABG Base Excess 0 08/08/17 04:35 POC Sodium 139 mmol/L (138-146) 08/06/17 11:36 POC Potassium 4.6 (3.5-4.9) 08/06/17 11:36 POC Chloride 103 (98-109) 08/06/17 11:36 FiO2 35 % 08/08/17 04:35 Sodium 140 mmol/L (137-145) 08/09/17 03:10 Potassium 3.6 mmol/L (3.6-5.0) 08/09/17 03:10 Chloride 102.6 mmol/L (98-107) 08/09/17 03:10 Carbon Dioxide 24 mmol/L (22-30) 08/09/17 03:10 Anion Gap 17 mmol/L 08/09/17 03:10 POC BUN 31 mg/dl (8-26) H 08/06/17 11:36 BUN 5 mg/dL (9-20) L 08/09/17 03:10 Creatinine 1.1 mg/dL (0.8-1.5) 08/09/17 03:10 Estimated GFR > 60 ml/min 08/09/17 03:10 BUN/Creatinine Ratio 5 % 08/09/17 03:10 Glucose 57 mg/dL (75-100) L 08/09/17 03:10 POC Glucose 72 (70-105) 08/09/17 07:58 Calcium 7.2 mg/dL (8.4-10.2) L 08/09/17 03:10 Magnesium 1.60 mg/dL (1.7-2.3) L 08/09/17 03:10 Total Bilirubin 0.30 mg/dL (0.1-1.2) 08/09/17 03:10 AST 21 units/L (5-40) 08/09/17 03:10 ALT 11 units/L (7-56) 08/09/17 03:10 Alkaline Phosphatase 47 units/L (35-129) 08/09/17 03:10 Total Protein 4.3 g/dL (6.3-8.2) L D 08/09/17 03:10 Albumin 2.5 g/dL (3.9-5) L 08/09/17 03:10 Albumin/Globulin Ratio 1.4 % 08/09/17 03:10 Lipase 19 units/L (13-60) 08/06/17 04:01 Plasma/Serum Alcohol < 0.01 % (0-0.07) 08/06/17 04:21 Blood Type O POSITIVE 08/06/17 04:01 Antibody Screen Negative 08/06/17 04:01 Crossmatch See Detail 08/06/17 04:01
[2017-08-10] MEDS ORDERED: LEVAQUIN 750MG/150ML 750 MG/150 ML BAG IV SCH (12:00)
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
[2017-08-10] MEDS: PROTONIX PO SCH (13:48)
[2017-08-10] MEDS: THERAGRAN-M Tab PO SCH (14:25)
--- NOTE | 2017-08-10 14:26 | Discharge Summary ---
Providers - Providers Date of Admission: 08/06/17 05:36 Date of discharge: 08/10/17 Attending physician: NICOLAS LORD 08/06/17 05:36 Consult to Physician [CONS] Urgent Consulting Provider: NICOL ALMONTE Reason For Exam: hematemesis Notified:: y 08/06/17 14:26 Consult to Dietitian/Nutrition [CONS] Routine Physician Instructions: Reason For Exam: Reason for Consult: Evaluate nutritional intake Primary care physician: IGLESIA SALEEM Hospitalization Condition: Stable Disposition: DC-01 TO HOME OR SELFCARE Time spent for discharge: 32 min Core Measure Documentation - Palliative Care Palliative Care/ Comfort Measures: Not Applicable - Core Measures Any of the following diagnoses?: none Exam - Constitutional Vitals: Temp Pulse Resp BP Pulse Ox 98.6 F 76 20 115/79 96 08/10/17 13:08 08/10/17 13:08 08/10/17 13:08 08/10/17 13:08 08/10/17 13:08 General appearance: Present: no acute distress, well-nourished, other (no agitation, no tremulousness, no evidence of alcohol withdrawal symptoms) - EENT Eyes: Present: PERRL, EOM intact - Neck Neck: Present: supple - Respiratory Respiratory effort: normal Respiratory: negative: rales, rhonchi, wheezing - Cardiovascular Rhythm: regular Heart Sounds: Present: S1 & S2 - Extremities Extremities: no ischemia, No edema - Abdominal General gastrointestinal: Present: soft, non-tender, non-distended, normal bowel sounds - Integumentary Integumentary: Present: clear, warm - Musculoskeletal Musculoskeletal: strength equal bilaterally - Psychiatric Psychiatric: appropriate mood/affect, cooperative - Neurologic Neurologic: moves all extremities Plan Activity: advance as tolerated, fall precautions, other (do not drive or operate heavy machinery while under alcohol intoxication.) Diet: advance as tolerated, other (mechanical soft diet and advance as tolerated ) Additional Instructions: Strongly advised to quit alcohol intake. Advised alcohol rehabilitation. Advised AAA support group as needed. Do not Drive or operate heavy machinery under the influence of alcohol. If youl notice any GI bleeding contact [email or web address] or go to emergency room Follow up with: IGLESIA SALEEM MD [Primary Care Provider] - 3-5 Days NICOL ALMONTE MD [Staff Physician] - 7 Days Forms: Accompanied Note Prescriptions: Folic Acid [Folvite] 1 mg PO QDAY #30 tablet Multivitamin Tab W-MINERAL [Multiple Vitamin/Mineral (Theragran M)] 1 each PO QDAY #30 tablet Ondansetron [Zofran TAB] 4 mg PO Q8HR PRN #15 tablet PRN Reason: Nausea Pantoprazole [Protonix TAB] 40 mg PO BID #30 tablet Thiamine [Vitamin B-1] 100 mg PO QDAY #30 tablet
[2017-08-10 17:01] VITALS: BP 143/91
== END 2017-08-10 18:27 | disposition home or self-care (01) | DRG 326 ==
LOC: ED 02:47 → 4A 05:36 → CC1 15:12 → 4A 08-09 22:47
PROVIDERS: ADMIT Internal Medicine; ATTEND Internal Medicine
PROC: 0D968ZZ Drainage of Stomach, Via Natural or Artificial Opening Endoscopic (ICD-10-PCS; principal; 2017-08-06)
PROC: 30233N1 Transfusion of Nonautologous Red Blood Cells into Peripheral Vein, Percutaneous Approach (ICD-10-PCS; 2017-08-06)
PROC: 4A033R1 Measurement of Arterial Saturation, Peripheral, Percutaneous Approach (ICD-10-PCS; 2017-08-06)
PROC: 5A1945Z Respiratory Ventilation, 24-96 Consecutive Hours (ICD-10-PCS; 2017-08-06)
PROC: 0BH17EZ Insertion of Endotracheal Airway into Trachea, Via Natural or Artificial Opening (ICD-10-PCS; 2017-08-06)
PROC: 3E0G8GC Introduction of Other Therapeutic Substance into Upper GI, Via Natural or Artificial Opening Endoscopic (ICD-10-PCS; 2017-08-06)
PROC: 0W3P8ZZ Control Bleeding in Gastrointestinal Tract, Via Natural or Artificial Opening Endoscopic (ICD-10-PCS; 2017-08-06)
PROC: 0DC68ZZ Extirpation of Matter from Stomach, Via Natural or Artificial Opening Endoscopic (ICD-10-PCS; 2017-08-06)
PROC: 3E0234Z Introduction of Serum, Toxoid and Vaccine into Muscle, Percutaneous Approach (ICD-10-PCS; 2017-08-07)
PROC: 0DJ08ZZ Inspection of Upper Intestinal Tract, Via Natural or Artificial Opening Endoscopic (ICD-10-PCS; 2017-08-08)
PROC: 0BJ08ZZ Inspection of Tracheobronchial Tree, Via Natural or Artificial Opening Endoscopic (ICD-10-PCS; 2017-08-09)
DX: K22.6 Gastro-esophageal laceration-hemorrhage syndrome (principal); J96.00 Acute respiratory failure, unspecified whether with hypoxia or hypercapnia; D62 Acute posthemorrhagic anemia; F10.10 Alcohol abuse, uncomplicated; K92.2 Gastrointestinal hemorrhage, unspecified; Y90.9 Presence of alcohol in blood, level not specified; I48.91 Unspecified atrial fibrillation; Z23 Encounter for immunization; Z87.11 Personal history of peptic ulcer disease; Z82.49 Family history of ischemic heart disease and other diseases of the circulatory system; Z88.0 Allergy status to penicillin
CPT/HCPCS: 36415; 36600; 71045; 80048; 80053; 80320; 82803; 82962; 83690; 83735; 85014; 85018; 85025; 85610; 85730; 86403; 86850; 86900; 86901; 86920; 87040; 87070; 87205; 90732; 93005; 93010; 94003; 94760; 96361; 96374; 96375; 99291; C9113; G0480; J0171; J0330; J1200; J1956; J2001; J2060; J2250; J2354; J2405; J2704; J3010; J3411; J7030; J7040; J7042; P9016